=== PATIENT | female | born 1960 | race Caucasian/White ===

== ENCOUNTER 2017-03-12 10:04 | Emergency (ER) | payer OTHER ==
[~2017-03-12] VITALS: Ht 157.5 cm; Wt 71.2 kg
[~2017-03-12 10:04] MED LIST: ALPR1TAB2 PO; LIT300 PO
[2017-03-12 10:08] VITALS: Ht 157.5 cm; Wt 71.2 kg
[2017-03-12] MEDS ORDERED: BUPIVACAINE 0.25% (MPF) 10 ML 10 ML VIAL INJ ONE (11:30)
[2017-03-12] MEDS ORDERED: IBUP-1542 PO (11:41)
--- NOTE | 2017-03-12 11:49 | ERD ---
ER Documentation Chief Complaint Date/Time DATE: 03/12/17 TIME: 11:44 Chief Complaint back pain rad left leg x 3 days HPI 56-year-old female complaining of back pain that radiates to the left leg 3 days. Patient states that 3 days ago she was walking down the stairs when she lost her footing, and almost fell. She held onto a post, and felt that she pulled a muscle in her left buttock region. She has been having pain in the area ever since. Denies saddle paresthesia. Denies bowel bladder dysfunctions. Denies falls. History of stroke in 2015, with residual left- sided weakness. Denies any other medical history. ROS All systems reviewed and are negative except as per history of present illness. 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 Reported Medications Alprazolam* (Xanax*) 1 Mg Tab, PO BID 12/11/12 Wilbur Carbonate* (Wilbur*) 300 Mg Cap, PO DAILY 12/11/12 Allergies Allergies: Coded Allergies: bee venom (honey bee) (Unverified Allergy, Unknown, SWELLING OF HANDS/FEET /FACE, 08/07/15) penicillin (Verified Allergy, Unknown, 08/06/15) rubella virus live vaccine (Unverified Allergy, Unknown, FEVER, DIZZINESS , 08/07/15) PMhx/Soc History of Surgery: Yes () Anesthesia Reaction: No Hx Neurological Disorder: Yes (stroke in past-left hand weakness) Hx Respiratory Disorders: Yes (asthma) Hx Cardiac Disorders: No Hx Psychiatric Problems: No Hx Miscellaneous Medical Probl: No Hx Alcohol Use: No Hx Substance Use: No Hx Tobacco Use: No Physical Exam Vitals Vital Signs Date Time Temp Pulse Resp B/P Pulse Ox O2 Delivery O2 Flow Rate FiO2 03/12/17 10:08 98.1 65 18 125/65 99 Physical Exam General: Well-developed, well-nourished, conscious and coherent, in no distress Skin: Warm and dry without rash, good texture and turgor Head: Normocephalic without evidence of trauma Eyes: Sclera and conjunctivae normal; pupils equal, round, and reactive to light; extraocular movements are intact Neck: Supple without meningismus or adenopathy. Carotids are equal. Trachea midline. No bruits or JVD Chest: Normal AP diameter, good expansion without retractions. Nontender. Lungs are clear to auscultate bilaterally with good tidal volume Heart: Regular rate and rhythm. No murmur, rub, or gallop heard Abdomen: Soft and nontender without masses, guarding, or rebound. Bowel sounds are active. No hepatosplenomegaly Back: Without spinal or CVA tenderness. Left buttock muscle spasm tenderness noted. Pelvis: Nontender to palpation and stable to compression Extremities: Full range of motion. Good strength bilaterally. No clubbing, cyanosis, or edema. Peripheral pulses are intact. Sensation intact Neuro: Alert and oriented. Mental status normal, speech clear. Cranial nerves grossly intact Results 24 hrs Current Medications Medications (Trade) Dose Ordered Sig/Kandice Route PRN Reason Start Time Stop Time Status Last Admin Dose Admin Bupivacaine HCl (Marcaine 0.25% (Mpf) 10 ml) 10 ml ONCE ONCE INJ 03/12/17 11:30 03/12/17 11:31 DC Procedures/MDM Procedure note: Trigger point injection Trigger point injection performed by me. 10 mL of bupivacaine is injected into left buttock. Total number muscle groups injected: 1. Patient reports improvement of pain after the trigger point injection. 56-year-old female presented ED was left buttock pain that radiates to the left leg after a near fall 3 days ago. I doubt that she has spinal fracture, subluxation, disc herniation, cauda equina syndrome, or spinal epidural abscess. Likely patient has sustained a muscle strain. Review of cures database shows that patient receives 90 tablets of [place] 7.5/325 every 30 days, last prescription was filled on 03/01/2017. Patient denies receiving the medication, also denies having any at home. I informed patient that I will prescribe her with ibuprofen, but cannot give her any [place] or other narcotic prescriptions. Patient appears well, stable for discharge and outpatient management. Medical decision making shared with patient and family. Education provided to patient and family. Patient and family expressed understanding of the plan. Medications on discharge: Ibuprofen. Follow-up: Primary care provider in 2-3 days or return to ED if worse. Departure Diagnosis: Primary Impression: Low back strain Encounter type: initial encounter Qualified Code: S39.012A - Low back strain , initial encounter Condition: Stable Patient Instructions: Back Sprain/Strain Additional Instructions: Call your primary care doctor TOMORROW for an appointment during the next 2-3 days.See the doctor sooner or return here if your condition worsens before your appointment time. Ask your primary provider for physical therapy referral. MCKENNA LOPEZ NP March 12, 2017 11:49
== END 2017-03-12 12:01 | disposition home or self-care (01) ==
LOC: FTE 10:04
DX: S39.012A Strain of muscle, fascia and tendon of lower back, initial encounter (principal); J45.909 Unspecified asthma, uncomplicated; W10.9XXA Fall (on) (from) unspecified stairs and steps, initial encounter; Y92.9 Unspecified place or not applicable
CPT/HCPCS: 20552; Z7502; Z7610

== ENCOUNTER 2017-10-19 13:26 | Day surgery (SDC) | payer OTHER ==
[~2017-10-19] VITALS: Ht 142.2 cm; Wt 72.9 kg
[2017-10-19] VITALS (7 sets, daily range): BP systolic 101–130; BP diastolic 61–80; PULSE 58–67; RESP 14–18; Ht 142.2 cm; Wt 72.9 kg
[~2017-10-19 13:26] MED LIST changes: +CEFAZOLIN 1 GM INJ ONE; +IBUP-1542 PO; +LACTATED RINGER'S 1,000 ML IV* SCH
[2017-10-19] MEDS ORDERED: METF500T4 PO (14:11)
[2017-10-19] MEDS ORDERED: LEVA15HF6 INH (14:12)
[2017-10-19] MEDS ORDERED: TOPI-25 PO (14:12)
[2017-10-19] MEDS ORDERED: BUPIVACAINE 0.5% (SDV) 30 ML INJ ONE (14:13)
[2017-10-19] MEDS ORDERED: OMEP20CA16 PO (14:13)
[2017-10-19] MEDS ORDERED: CLOP75TA27 PO (14:13)
[2017-10-19] MEDS ORDERED: LIDOCAINE 1% (MPF) 30 ML INJ ONE (14:13)
[2017-10-19] MEDS ORDERED: ATOR80TA75 PO (14:14)
[2017-10-19] MEDS ORDERED: QVAR INHALATION (14:15)
[2017-10-19] MEDS ORDERED: MEPERIDINE 25 MG INJ IV PRN (15:00)
[2017-10-19] MEDS ORDERED: METOCLOPRAMIDE 10 MG INJ IV PRN (15:00)
[2017-10-19] MEDS ORDERED: EPHEDrine SULFATE 50 MG/5 ML SYG IV PRN (15:00)
[2017-10-19] MEDS ORDERED: hydrALAzine 20 MG INJ IV PRN (15:00)
[2017-10-19] MEDS ORDERED: KETOROLAC 30 MG INJ IV PRN (15:00)
[2017-10-19] MEDS ORDERED: FENTAnyl 50 MCG/ML VIAL IV PRN ×3 (15:00)
[2017-10-19] MEDS ORDERED: INSULIN ASPART [NOVOLOG] 3 ML PEN SC ONE (15:00)
[2017-10-19] MEDS ORDERED: ONDANSETRON 4 MG INJ IV PRN (15:00)
[2017-10-19] MEDS ORDERED: FAMOTIDINE 20 MG INJ ONE (16:24)
[2017-10-19] MEDS ORDERED: ONDANSETRON 4 MG INJ ONE (16:24)
[2017-10-19] MEDS ORDERED: MIDAZOLAM 1 MG/ML 2 ML INJ ONE (16:24)
[2017-10-19] MEDS ORDERED: DEXAMETHASONE 4 MG/ML 1 ML INJ ONE (16:24)
[2017-10-19] MEDS ORDERED: PROPOFOL 100 ML ONE (16:24)
[2017-10-19] MEDS ORDERED: LIDOCAINE 2% (SDV) 5 ML INJ ONE (16:24)
[2017-10-19] MEDS ORDERED: FENTAnyl 50 MCG/ML VIAL ONE (16:24)
--- NOTE | 2017-10-19 16:28 | HPN ---
Date/Time of Note Date/Time of Note DATE: 10/19/17 TIME: 16:28 Interval H&P Admission Note Pt. seen H&P reviewed: No system changes HEATHER RYDER Oct 19, 2017 16:28
[2017-10-19] MEDS ORDERED: LIDOCAINE 1% (MPF) 30 ML INJ INJ ONE (16:54)
[2017-10-19] MEDS ORDERED: BUPIVACAINE 0.5% (MPF) 30 ML INJ EPI ONE (16:55)
--- NOTE | 2017-10-19 17:09 | OPPN ---
Date/Time of Note Date/Time of Note DATE: 10/19/17 TIME: 17:08 Operative Report Preoperative Diagnosis left carpal tunnel syndrome, left thumb trigger Postoperative Diagnosis left carpal tunnel syndrome, left thumb trigger Operation/Procedure Performed left carpal tunnel release- open, left thumb trigger release Surgeon see signature line bilingual executive assistant none Anesthesia: MAC, other Estimated blood loss: 0 - 10 ml's Transfusion Required none Specimen none Grafts/Implants none Complications none HEATHER RYDER Oct 19, 2017 17:08
--- NOTE | 2017-10-19 18:20 | OPR ---
DATE OF OPERATION: 10/19/2017 SURGEON: Jerson Vale MD ANESTHESIA: Local MAC. PREOPERATIVE DIAGNOSES: 1. Left carpal tunnel syndrome. 2. Left thumb trigger. POSTOPERATIVE DIAGNOSES: 1. Left carpal tunnel syndrome. 2. Left thumb trigger. OPERATIVE PROCEDURE: 1. Left carpal tunnel release, open. 2. Left thumb trigger release. OPERATIVE FINDINGS AT SURGERY: Compression of the median nerve at the carpal tunnel and compressive tenosynovitis of the left thumb. INDICATION: This is a 57-year-old female with longstanding left carpal tunnel symptoms and left trigger thumb. She failed conservative management and elected to proceed with surgical intervention understanding the risks and benefits. OPERATIVE PROCEDURE: The patient was seen in the preoperative area. All further questions were answered. Again, she gave informed consent understanding risks and benefits. She was taken to the operative suite and placed in the supine position. Ancef, 2 grams, IV given and sedation was administered by the anesthesia team. Tourniquet placed on left upper extremity. Left upper extremity was prepped with Chloraprep stick and draped usual sterile fashion. A 7 mL volume of a 50/50 mixture of 0.5 percent Marcaine and 1 percent lidocaine was injected at the surgical site at the base of the palm for the carpal tunnel and the base of the thumb for the trigger thumb. Attention was first turned to the carpal tunnel and a 2 cm incision at the base of the palm was utilized with sharp dissection carried down through skin and subcutaneous tissue. The palmar aponeurosis was identified and incised along its ulnar border. Retractors were deepened and the transverse carpal ligament was identified and was incised along its ulnar border approximately 3 mm radial to the hook of the hamate. Retractor placed distally and distal extent of the transverse carpal ligament was divided. Attention turned proximally and the proximal extent of the transverse carpal ligament was divided under direct visualization. The wound was copiously irrigated and the skin closed with 4-0 nylon. Attention turned to the trigger thumb and a transverse incision at the volar MP crease was utilized with sharp dissection carried down through skin. Scissor dissection was used to divide through subcutaneous tissue in order to preserve the digital nerve to the thumb. The flexor sheath was identified and the A1 dean was incised along its midline. The A1 dean was divided out to the level of the oblique dean and proximally until the tendon was completely decompressed. The wound was copiously irrigated and the skin closed with 4-0 nylon. Xeroform placed on the wounds followed by sterile gauze, Webril and an Joe bandage. Tourniquet deflated after 17 minutes. The patient was awakened from anesthesia. She was taken the postoperative suite in stable condition, tolerated procedure well without complications. SPECIMENS: None. ESTIMATED BLOOD LOSS: 5 mL. COUNTS: Sponge, instrument, and needle counts correct. TOURNIQUET TIME: 17 minutes. CONDITION AT DISCHARGE: Stable. Dictated By: Jerson Vale MD /ulices/catalina /Document#: [id number] MALIK
[2017-10-20] MEDS ORDERED: CLINDAMYCIN 600 MG/D5W (PMX) 50 ML IVPB ONE (06:00)
== END 2017-10-19 18:34 | disposition home or self-care (01) ==
LOC: SDS 13:26
PROVIDERS: ATTEND Orthopaedic Surgery Hand Surgery
DX: G56.02 Carpal tunnel syndrome, left upper limb (principal); M65.312 Trigger thumb, left thumb; E78.5 Hyperlipidemia, unspecified; E11.9 Type 2 diabetes mellitus without complications; J45.909 Unspecified asthma, uncomplicated; K21.9 Gastro-esophageal reflux disease without esophagitis
CPT/HCPCS: 26055; 64721; 82962; J0690; J1100; J1815; J2250; J2405; J3010; Z7512; Z7610

== ENCOUNTER 2017-12-21 13:24 | Day surgery (SDC) | END 2017-12-21 18:34 | disposition home or self-care (01) ==

== ENCOUNTER 2018-06-18 12:04 | Emergency (ER) | END 2018-06-18 14:49 | disposition home or self-care (01) ==

== ENCOUNTER 2018-09-29 15:12 | Emergency (ER) | END 2018-09-29 22:01 | disposition home or self-care (01) ==

== ENCOUNTER 2019-02-15 05:26 | Day surgery (SDC) | payer OTHER ==
[2019-02-15] VITALS (12 sets, daily range): BP systolic 94–123; BP diastolic 50–72; PULSE 54–64; RESP 14–26; Ht 142.2 cm; Wt 67.1 kg
[~2019-02-15] VITALS: Ht 142.2 cm; Wt 67.1 kg
[~2019-02-15 05:26] MED LIST changes: +ADV25050 INHALATION; +ALPR0.5T6 PO; -ALPR1TAB2 PO; +ATOR-2 PO; -CEFAZOLIN 1 GM INJ ONE; +CLOP75TA19 PO; -IBUP-1542 PO; -LACTATED RINGER'S 1,000 ML IV* SCH; +METF500T24 PO; +OMEP20CA16 PO; +TOPI100T11 PO
[2019-02-15] MEDS ORDERED: CLINDAMYCIN 900 MG/D5W (PMX) 50 ML IVPB SCH (06:00)
[2019-02-15] MEDS ORDERED: HYDR-3025 PO (06:45)
[2019-02-15] MEDS ORDERED: CHOL200073 PO (06:45)
[2019-02-15] MEDS ORDERED: FER325 PO (06:45)
[2019-02-15] MEDS ORDERED: LEVA15HF5 IH (06:45)
[2019-02-15] MEDS ORDERED: BUPIVACAINE 0.5% (SDV) 30 ML INJ ONE (06:54)
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
[2019-02-15] MEDS ORDERED: SEVOFLURANE 15 MIN ONE (07:00)
[2019-02-15] MEDS ORDERED: LACTATED RINGER'S 1,000 ML IV* ONE (07:00)
[2019-02-15] MEDS ORDERED: PROPOFOL 20 ML ONE (07:01)
[2019-02-15] MEDS ORDERED: LIDOCAINE 2% (SDV) 5 ML INJ ONE (07:01)
[2019-02-15] MEDS ORDERED: CLINDAMYCIN 900 MG/D5W (PMX) 50 ML IVPB ONE (07:02)
[2019-02-15] MEDS ORDERED: FENTAnyl 50 MCG/ML VIAL ONE (07:02)
[2019-02-15] MEDS ORDERED: MIDAZOLAM 1 MG/ML 2 ML INJ ONE (07:02)
[2019-02-15] MEDS ORDERED: ONDANSETRON 4 MG INJ ONE (07:57)
[2019-02-15] MEDS ORDERED: FAMOTIDINE 20 MG INJ ONE (07:58)
[2019-02-15] MEDS ORDERED: METOCLOPRAMIDE 10 MG INJ ONE (07:58)
[2019-02-15] MEDS ORDERED: DEXAMETHASONE 4 MG/ML 5 ML INJ ONE (07:58)
[2019-02-15] MEDS ORDERED: FENTAnyl 50 MCG/ML VIAL IV PRN ×3 (08:30)
[2019-02-15] MEDS ORDERED: OXYCODONE/ACETAMINOPHEN (5/325) TAB PO PRN ×2 (08:30)
[2019-02-15] MEDS ORDERED: MEPERIDINE 25 MG INJ IV PRN (08:30)
[2019-02-15] MEDS ORDERED: ONDANSETRON 4 MG INJ IV PRN (08:30)
[2019-02-15] MEDS ORDERED: ALBUTEROL 0.083% (NEB) 2.5 MG/3 ML AMP HHN PRN (08:30)
--- NOTE | 2019-02-15 08:54 | OPR ---
Date/Time of Note Date/Time of Note DATE: 02/15/19 TIME: 08:51 Operative Report Procedure Date: Feb 15, 2019 Preoperative Diagnosis Grade 3 Cystocele Postoperative Diagnosis same Operation/Procedure Performed Anterior Repair Magaly Plication Surgeon Gris Carbajal MD Assistant Professor Of Geography None Anesthesia Type: general Estimated Blood Loss: minimal Transfusion none Specimen vaginal mucosa Grafts/Implants none Tubes/Drains none Complications none Pt Condition Post Procedure: stable Disposition: PACU Procedure Description DESCRIPTION OF PROCEDURE: She was taken to the operating room. General anesthesia was induced. She was prepped and draped in the dorsal lithotomy fashion. Morales catheter was inserted. She was in the supine position. After she was prepped and draped, surgical time out was done, surgery and patient was identified. Longitudinal incision was made from one cm inferior to urethra toward the cervix. Sharp and blunt dissection done to separate the vaginal mucosa from underlying tissue. Cystocele was isolated. Magaly plication was done by placing 0 Vicryl suture in the angles of the bladder neck. Several interrupted sutures placed to reduce the cystocele. Excessive vaginal mucosa was removed. Vaginal mucosa was closed with running 0 Vicryl. good hemostasis was noted. All counts were correct. The patient tolerated the procedure well. GRIS CARBAJAL MD Feb 15, 2019 08:54
[2019-02-15] MEDS ORDERED: CLINDAMYCIN 2% 40 GM VAG CR VAG ONE (09:00)
--- NOTE | 2019-02-15 10:42 | PAC ---
Date/Time of Note Date/Time of Note DATE: 02/15/19 TIME: 10:41 Post-Anesthesia Notes Post-Anesthesia Note Last documented vital signs Vital Signs Date Temp Pulse Resp B/P (MAP) Pulse Ox O2 O2 Flow FiO2 Time Delivery Rate 02/15/19 56 16 104/50 96 Room Air 09:39 (68) 02/15/19 98.0 09:00 Activity: WNL Respiratory function: WNL Cardiovascular function: WNL Mental status: Baseline Pain reasonably controlled: Yes Hydration appropriate: Yes Nausea/Vomiting absent: Yes GYPSY SHEIKH Feb 15, 2019 10:42
== END 2019-02-15 11:12 | disposition home or self-care (01) ==
LOC: SDS 05:26
PROVIDERS: ATTEND Specialist
DX: N81.3 Complete uterovaginal prolapse (principal); E11.9 Type 2 diabetes mellitus without complications; J45.909 Unspecified asthma, uncomplicated; F41.8 Other specified anxiety disorders
CPT/HCPCS: 57240; 82962; 88305; J1100; J2250; J2405; J2765; J3010; Z7512; Z7610